=== PATIENT | female | born 1970 | race Caucasian/White ===

== ENCOUNTER 2022-10-01 23:26 | Emergency (ER) | payer BC ==
[~2022-10-01] VITALS: Ht 167.6 cm; Wt 80.0 kg
[~2022-10-01 23:26] MED LIST: CIPRO XR500 M1 PO; LEVOTHYROXIN25 MC1 PO; LEXAPRO10 MG PO; LEXAPRO5 MG PO; NIASPAN1000 ER PO; TOPROL XL25 M1 PO; TRICOR145 MG PO; TRICOR48 MG PO; XANAX0.5 MG PO
[2022-10-02 00:07] LABS: BASO% 0.4 % (0-3); EOS% 2.4 % (0-8); HEMATOCRIT 42.7 % (37.0-47.0); HEMOGLOBIN 13.9 g/dl (12.0-16.0); IMMATURE GRANULOCYTES 0.9 % (0.0-5.0); LYMPH% 24.4 % (15-41); MEAN CELL VOLUME 85.9 fL CALC (80.0-100.0); MEAN CORPUSCULAR HGB CONC 32.6 g/dL CAL (32.0-36.0); MONO% 5.5 % (2-13); NEUT# 6.45 thou/uL (2.00-7.15); NEUT% 66.4 % (42-76); RED BLOOD COUNT 4.97 mill/uL (4.20-5.60); RED CELL DISTRI WIDTH 12.2 % (11.5-15.5)
[2022-10-02 00:38] LABS: URINE BILIRUBIN - DIPSTICK NEGATIVE (NEGATIVE); URINE BLOOD DIPSTICK LARGE (NEGATIVE); URINE COLOR ORANGE; URINE GLUCOSE - DIPSTICK NEGATIVE (NEGATIVE); URINE KETONE TRACE mg/dL (NEGATIVE); URINE LEUK ESTERASE TRACE (NEGATIVE); URINE PROTEIN - DIPSTICK 30 mg/dL (NEG-TRACE); URINE SPECIFIC GRAVITY 1.015
[2022-10-02 00:43] LABS: URINE NITRITE - DIPSTICK POSITIVE (Negative)
[2022-10-02 00:52] LABS: URINE BACTERIA MODERATE hpf; URINE CALCIUM OXALATE CRYSTALS FEW lpf; URINE RBC >100 RBC/hpf (0-5); URINE SQUAMOUS EPITHELIAL CELL FEW EPI/hpf (0-FEW)
[2022-10-02 00:56] LABS: ALBUMIN 4.8 g/dL (3.2-5.0); ALKALINE PHOSPHATASE 69 u/l (38-126); BILIRUBIN, TOTAL 0.4 mg/dL (0.02-1.3); BUN 18 mg/dL (7-17); BUN/CREATININE RATIO 20 (12-20 (CALC)); CARBON DIOXIDE 27 mmol/l (22-30); CHLORIDE 104 mmol/l (95-108); CREATININE 0.9 mg/dL (0.5-1.0); GFR FOR AFR.AMER. > 60 ML/MIN (>=60 (CALC)); GFR OTHER RACES > 60 ML/MIN (>=60 (CALC)); LIPASE 205 u/l (23-300); SODIUM 142 mmol/l (137-146); TOTAL PROTEIN 8.1 g/dL (6.3-8.2)
[2022-10-02 00:57] LABS: ANION GAP 15 (6-22 (CALC)); POTASSIUM 3.5 mmol/l (3.5-5.1); SGOT/AST 47 u/l (14-36)
[2022-10-02 01:59] VITALS: BP 160/71
== END 2022-10-02 02:01 | disposition home or self-care (01) | DRG 694 ==
LOC: ED 23:26
PROVIDERS: Family Medicine
DX: N13.2 Hydronephrosis with renal and ureteral calculous obstruction (principal); R82.71 Bacteriuria